=== PATIENT | female | born 1965 | race Hispanic/Latino ===

== ENCOUNTER → 2022-08-03 | Day surgery (SDC) | payer BC ==
[~2022-08-03] MED LIST: ALTOPREV40 MG PO; FENTANYL CITRATE/PF 100MCG/2 ML INJ ONE; INSULIN GL100 UNIT/3 SC; LACTATED RINGER'S 1,000 ML ONE; LEVOTHYROXINE112 MCG PO; METFORMIN HCL500 M2 PO; MIDAZOLAM HCL 2 MG/2 ML VIAL ONE; OMEPRAZOLE40 MG PO; OR PHACO EYE KIT ONE; PIOGLITAZONE HC45 MG PO; PREOP PHACO EYE KIT ONE; VASOTEC10 M1 PO
[2022-08-03 08:36] VITALS: TEMP 97.1
[2022-08-03 08:50] VITALS: BP 138/81; PULSE 62; RESP 18; O2SAT 95
== END | disposition home or self-care (01) ==
LOC: OR 07:23
PROVIDERS: ATTEND Ophthalmology
DX: H25.11 Age-related nuclear cataract, right eye (principal); E11.9 Type 2 diabetes mellitus without complications; I10 Essential (primary) hypertension; E03.9 Hypothyroidism, unspecified; E78.5 Hyperlipidemia, unspecified; K21.9 Gastro-esophageal reflux disease without esophagitis; F41.9 Anxiety disorder, unspecified; Z79.84 Long term (current) use of oral hypoglycemic drugs; Z79.899 Other long term (current) drug therapy
CPT/HCPCS: 36415; 66984; 82948; J7121; J2250; V2632

== ENCOUNTER → 2022-09-07 | Day surgery (SDC) | payer BC ==
[2022-09-07 09:30] VITALS: BP 145/92; PULSE 62; RESP 18; O2SAT 95
== END | disposition home or self-care (01) ==
LOC: OR 06:00
PROVIDERS: ATTEND Ophthalmology
DX: H25.12 Age-related nuclear cataract, left eye (principal); E11.9 Type 2 diabetes mellitus without complications; I10 Essential (primary) hypertension; E78.5 Hyperlipidemia, unspecified; E03.9 Hypothyroidism, unspecified; K21.9 Gastro-esophageal reflux disease without esophagitis; K28.9 Gastrojejunal ulcer, unspecified as acute or chronic, without hemorrhage or perforation; F32.A Depression, unspecified; Z79.84 Long term (current) use of oral hypoglycemic drugs; Z79.4 Long term (current) use of insulin; Z79.899 Other long term (current) drug therapy
CPT/HCPCS: 36415; 66984; 82948; J2250; J3010; J7121; V2632